=== PATIENT | male | born 1975 | race Two or more races ===

== ENCOUNTER 2018-08-06 10:12 | Emergency (ER) | payer MEDICARE, MEDICAID ==
[~2018-08-06] VITALS: Ht 175.3 cm; Wt 113.4 kg
[2018-08-06 11:25] VITALS: BP 140/83
[2018-08-06] MEDS: HYDROcodone-ACET 10/325MG TAB PO ONE (11:58)
== END 2018-08-06 12:53 | disposition home or self-care (01) ==
LOC: EDBD 10:12 → EDUNIT# 10:12 → ER 10:20
DX: S09.90XA Unspecified injury of head, initial encounter (principal); I12.0 Hypertensive chronic kidney disease with stage 5 chronic kidney disease or end stage renal disease; N18.6 End stage renal disease; Z88.8 Allergy status to other drugs, medicaments and biological substances; Z86.73 Personal history of transient ischemic attack (TIA), and cerebral infarction without residual deficits; Z99.2 Dependence on renal dialysis; W05.0XXA Fall from non-moving wheelchair, initial encounter; Y93.89 Activity, other specified; Y99.8 Other external cause status; Y92.89 Other specified places as the place of occurrence of the external cause
CPT/HCPCS: 70450; 72070; 72100; 72125

== ENCOUNTER 2018-08-12 19:23 | Emergency (ER) | payer MEDICARE, MEDICAID ==
[~2018-08-12] VITALS: Ht 175.3 cm; Wt 113.4 kg
[2018-08-12 19:47] VITALS: BP 131/81
[2018-08-12 20:33] LABS: Basophils # (auto) 0.1 uL; Basophils % (auto) 0.5 % (0.0-2.0); Eosinophils # (auto) 0.5 uL; Eosinophils % (auto) 5.2 % (0.0-7.0); Hematocrit 37.3 % (41.0-53.0); Hemoglobin 12.5 g/dL (13.5-17.5); Lymphocytes # (auto) 1.7 uL; Lymphocytes % (auto) 16.9 % (10.0-50.0); Mean Corpuscular Hemoglobin 33.8 pg (28.0-32.0); Mean Corpuscular Hgb Conc. 33.4 g/dL (32.0-36.0); Mean Corpuscular Volume 101.1 fL (80.0-100.0); Monocytes # (auto) 0.7 uL; Monocytes % (auto) 7.1 % (0.0-12.0); Neutrophils # (auto) 7.1 uL; Neutrophils % (auto) 70.3 % (37.0-80.0); Platelet Count (auto) 167 10^3/uL (140-450); Red Blood Cells 3.69 10^6/uL (4.5-5.90); Red Cell Distribution Width 15.2 % (11.8-14.3); White Blood Cell 10.2 10^3/uL (4.4-10.8)
[2018-08-12 20:47] LABS: BUN/Creatinine Ratio 5.5; INR 0.91 (0.9-1.15); Magnesium 2.9 mg/dL (1.6-2.6); Partial Thromboplastin Time 26.1 sec (23.64-32.05)
[2018-08-12 20:49] LABS: Bilirubin, Total 0.4 mg/dL (0.2-1.0); Total Protein 8.6 g/dL (6.4-8.2)
[2018-08-12 21:06] LABS: Potassium 6.8 mmol/L (3.5-5.1)
[2018-08-12 22:38] LABS: Urine Bacteria FEW /hpf (None Seen); Urine Blood 1+ /uL (Negative); Urine WBC 2 /hpf (0 - 3)
== END 2018-08-12 20:17 | disposition left against medical advice (07) ==
LOC: ER 19:23
DX: R11.2 Nausea with vomiting, unspecified (principal); Z53.21 Procedure and treatment not carried out due to patient leaving prior to being seen by health care provider
CPT/HCPCS: 36415; 80053; 81001; 82150; 82962; 83690; 83735; 85025; 85610; 85730

== ENCOUNTER 2018-10-03 00:47 | Emergency (ER) | payer MEDICARE, MEDICAID ==
[~2018-10-03] VITALS: Ht 170.2 cm; Wt 108.9 kg
[2018-10-03 04:07] VITALS: BP 172/82
== END 2018-10-03 05:42 | disposition home or self-care (01) ==
LOC: EDBD 00:47 → ER 00:47
DX: T65.91XA Toxic effect of unspecified substance, accidental (unintentional), initial encounter (principal); I12.0 Hypertensive chronic kidney disease with stage 5 chronic kidney disease or end stage renal disease; N18.6 End stage renal disease; Z99.2 Dependence on renal dialysis; Z88.8 Allergy status to other drugs, medicaments and biological substances; Y92.89 Other specified places as the place of occurrence of the external cause
CPT/HCPCS: 93005; 94761

== ENCOUNTER 2018-10-06 23:55 | Emergency (ER) | payer MEDICARE, MEDICAID ==
[~2018-10-06] VITALS: Ht 175.3 cm; Wt 113.4 kg
[2018-10-07 00:35] LABS: Basophils # (auto) 0.1 uL; Basophils % (auto) 0.6 % (0.0-2.0); Eosinophils # (auto) 0.4 uL; Eosinophils % (auto) 4.2 % (0.0-7.0); Hematocrit 37.8 % (41.0-53.0); Hemoglobin 12.6 g/dL (13.5-17.5); Lymphocytes # (auto) 1.8 uL; Lymphocytes % (auto) 17.9 % (10.0-50.0); Mean Corpuscular Hemoglobin 33.4 pg (28.0-32.0); Mean Corpuscular Hgb Conc. 33.4 g/dL (32.0-36.0); Mean Corpuscular Volume 100.2 fL (80.0-100.0); Monocytes # (auto) 0.8 uL; Neutrophils # (auto) 6.8 uL; Neutrophils % (auto) 69.3 % (37.0-80.0); Nucleated Red Blood Cells % 0.1 %; Platelet Count (auto) 200 10^3/uL (140-450); Red Blood Cells 3.77 10^6/uL (4.5-5.90); Red Cell Distribution Width 14.6 % (11.8-14.3); White Blood Cell 9.8 10^3/uL (4.4-10.8)
[2018-10-07 00:53] LABS: INR 0.97 (0.9-1.15); Partial Thromboplastin Time 25.9 sec (23.64-32.05)
[2018-10-07 00:56] LABS: Albumin 3.7 g/dL (3.4-5.0); BUN/Creatinine Ratio 3.1; Calcium 7.1 mg/dL (8.5-10.1); Potassium 4.4 mmol/L (3.5-5.1)
[2018-10-07 00:59] LABS: Bilirubin, Total 0.4 mg/dL (0.2-1.0); Total Protein 8.2 g/dL (6.4-8.2)
[2018-10-07] MEDS ORDERED: HYDROcodone-ACET 7.5/325MG TAB PO ONE (03:30)
[2018-10-07 04:01] VITALS: BP 142/90
== END 2018-10-07 05:26 | disposition home or self-care (01) ==
LOC: ER 10-07 00:06
DX: I12.0 Hypertensive chronic kidney disease with stage 5 chronic kidney disease or end stage renal disease (principal); N18.6 End stage renal disease; Z99.2 Dependence on renal dialysis; Z88.6 Allergy status to analgesic agent
CPT/HCPCS: 36415; 74176; 80053; 85025; 85610; 85730